=== PATIENT | female | born 1965 | race Caucasian/White ===

== ENCOUNTER 2016-06-03 16:54 | Inpatient (IN) | payer MEDICAID ==
[~2016-06-03] VITALS: Ht 160 cm; Wt 83.6 kg
[2016-06-03] MEDS ORDERED: OPTIRAY 350 100 ML VIAL HMH IV ONE (16:55)
[2016-06-03] MEDS ORDERED: DIPHENHYDRAMINE 50 MG/ML VIAL ONE (17:14)
[2016-06-03] MEDS ORDERED: METOCLOPRAMIDE 10 MG/2 ML VIAL ONE (17:14)
[2016-06-03] MEDS ORDERED: DILAUDID 1 MG/ML AMP ONE (19:01)
[2016-06-03] MEDS ORDERED: DUONEB INH ONE (21:04)
[2016-06-03] MEDS ORDERED: METHYLPRED SOD SUCC 125 MG/2 ML VIAL ONE (21:11)
[2016-06-03] MEDS ORDERED: NEB-ALBUTEROL 2.5 MG/3 ML INH PRN (21:45)
[2016-06-03] MEDS ORDERED: SALINE FLUSH 10 ML FLUSH PRN (21:50)
[2016-06-03] MEDS ORDERED: ROPINIROLE 0.25 MG TAB PO SCH (21:50)
[2016-06-03] MEDS ORDERED: ACETAMIN/BUTALB/CAFF PO PRN (21:50)
[2016-06-03] MEDS ORDERED: BISACODYL 10 MG SUPP RECTAL PRN (21:50)
[2016-06-03] MEDS ORDERED: BISACODYL EC 5 MG TAB PO PRN (21:50)
[2016-06-03] MEDS ORDERED: ALU/MAG/SIM 30 ML UDC PO PRN (21:50)
[2016-06-03] MEDS ORDERED: hydrOXYzine 25 MG TAB PO PRN (21:50)
[2016-06-03] MEDS ORDERED: MAG HYDROX 30 ML UDC PO PRN (21:50)
[2016-06-03] MEDS: NEB-BROVANA 15 MCG/2 ML INH SCH (21:50)
[2016-06-03 23:19] VITALS: BP_SYST 100; BP_SYST 106; RESP 18; TEMP 98.1
[2016-06-03 23:20] VITALS: Ht 160 cm; Wt 83.6 kg
[2016-06-03] MEDS: SALINE FLUSH 10 ML FLUSH SCH (23:44)
[2016-06-03] MEDS: GUAIFENESIN ER 600 MG TABCR PO SCH (23:45)
[2016-06-03] MEDS: METHYLPRED SOD SUCC 40 MG VIAL IV SCH (23:45)
[2016-06-03 23:50] VITALS: BP_SYST 170; BP_SYST 172; RESP 20; TEMP 98.7
[2016-06-04] VITALS (7 sets, daily range): BP systolic 112–127; RESP 18–20; TEMP 97.6–98.2
[2016-06-04] MEDS: DUONEB INH SCH ×6 (02:27→23:07)
[2016-06-04] MEDS: NEB-BUDESONIDE 0.5 MG INH SCH ×2 (05:05→19:57)
[2016-06-04] MEDS: NEB-BROVANA 15 MCG/2 ML INH SCH ×2 (05:05→19:57)
[2016-06-04] MEDS: SODIUM CHLORIDE 0.9% FLUSH BAG 500 ML IV SCH (05:59)
[2016-06-04] MEDS ORDERED: AZITHROMYCIN 500 MG in SODIUM CHLORIDE 0.9% 250 ML IV SCH (09:00)
[2016-06-04] MEDS ORDERED: CEFTRIAXONE 1 GM in SODIUM CHLORIDE 0.9% 50 ML IV SCH (09:00)
[2016-06-04] MEDS ORDERED: LEVOFLOXACIN 750 MG/150 ML 150 ML IV SCH (09:00)
[2016-06-04] MEDS: METHYLPRED SOD SUCC 40 MG VIAL IV SCH (09:38)
[2016-06-04] MEDS: SALINE FLUSH 10 ML FLUSH SCH ×2 (09:38→21:10)
[2016-06-04] MEDS: GUAIFENESIN ER 600 MG TABCR PO SCH ×2 (09:41→21:11)
[2016-06-04] MEDS: clonazePAM 0.5 MG TAB PO SCH ×3 (09:41→21:10)
[2016-06-04] MEDS: FOLIC ACID 1 MG TAB PO SCH (09:42)
[2016-06-04] MEDS: Furosemide 80 MG TAB PO SCH (09:42)
[2016-06-04] MEDS: DULoxetine 30 MG CAP PO SCH (09:42)
[2016-06-04] MEDS ORDERED: MISSING DOSE XX ONE (09:50)
[2016-06-04] MEDS ORDERED: GLUCAGON 1 MG VIAL IM PRN (11:35)
[2016-06-04] MEDS ORDERED: DEXTROSE 50% SYRINGE 50 ML IV PRN (11:35)
[2016-06-04] MEDS ORDERED: KCL CR 20 MEQ TAB PO ONE (11:35)
[2016-06-04] MEDS: DOXYCYCLINE 100 MG TAB PO SCH ×2 (12:45→21:49)
[2016-06-04] MEDS: PREDNISONE 50 MG TAB PO SCH (12:46)
[2016-06-04] MEDS ORDERED: PANTOPRAZOLE 40 MG TAB PO SCH (21:00)
[2016-06-04] MEDS ORDERED: DULoxetine 30 MG CAP PO SCH (21:00)
[2016-06-05] MEDS: SODIUM CHLORIDE 0.9% FLUSH BAG 500 ML IV SCH (04:24)
[2016-06-05] MEDS: NEB-BROVANA 15 MCG/2 ML INH SCH (06:30)
[2016-06-05] MEDS: DUONEB INH SCH ×2 (06:30→10:17)
[2016-06-05] MEDS: NEB-BUDESONIDE 0.5 MG INH SCH (06:30)
[2016-06-05 08:48] VITALS: BP_SYST 127; RESP 18; TEMP 97.7
[2016-06-05] MEDS: SALINE FLUSH 10 ML FLUSH SCH (09:26)
[2016-06-05] MEDS: PREDNISONE 50 MG TAB PO SCH (09:27)
[2016-06-05] MEDS: GUAIFENESIN ER 600 MG TABCR PO SCH (09:27)
[2016-06-05] MEDS: FOLIC ACID 1 MG TAB PO SCH (09:27)
[2016-06-05] MEDS: DOXYCYCLINE 100 MG TAB PO SCH (09:27)
[2016-06-05] MEDS: DULoxetine 30 MG CAP PO SCH (09:27)
[2016-06-05] MEDS: Furosemide 80 MG TAB PO SCH (09:27)
[2016-06-05] MEDS: clonazePAM 0.5 MG TAB PO SCH (09:27)
[2016-06-05 11:46] VITALS: BP_SYST 124; RESP 18; TEMP 98.1
[2016-06-05 13:46] VITALS: BP_SYST 124; RESP 18; TEMP 98.1
== END 2016-06-05 14:17 | disposition home or self-care (01) | DRG 191 ==
LOC: ENRESERV → ENRESERVDT → ENRESERVTM → ER 16:54 → EMR 21:41 → ENPENDDIS 21:41 → PCU 23:01 → 4NT 06-04 17:56
PROVIDERS: ADMIT Family Medicine; ATTEND Family Medicine
CPT/HCPCS: 36415; 36600; 70450; 71010; 71250; 72125; 74177; 80048; 80053; 82085; 82550; 82803; 82947; 83880; 85025; 85652; 86038; 86141; 86200; 86235; 86255; 86256; 86431; 86701; 94640; 94799; 96374; 96375; 99223; 99233; 99238